=== PATIENT | male | born 1970 | race Caucasian/White ===

== ENCOUNTER → 2020-03-31 11:10 | Outpatient (BNVA) | payer OTHER, SELFPAY | PROVIDERS: Family Provider Internal Medicine; PCP Internal Medicine; Visit Provider Orthopaedic Surgery | DX: M76.51 Patellar tendinitis, right knee (principal) | CPT/HCPCS: 73560; 73565 ==

== ENCOUNTER 2020-08-06 10:41 | Outpatient (CLI) | payer BC, SELFPAY ==
--- NOTE | 2020-08-06 | US_ITS ---
WS: [id number] ULTRASOUND ABDOMEN LIMITED CLINICAL INFORMATION: ELEVATED TRANSAMINASE LEVEL COMPARISON: None. FINDINGS: Limited examination due to body habitus Liver Size: Enlarged Craniocaudal length: 20.1 cm. Echogenicity: Dense Surface nodularity: None. Mass (size and location): None. Bile ducts Intrahepatic ducts: Normal. Common bile duct diameter: 2.7 mm. Gallbladder Normal. Gallstones: None. Gallbladder sludge: None. Gallbladder wall thickening: None. Pericholecystic fluid: None. Sonographic Ortiz sign: Absent. Pancreas Not well visualized Right kidney: Normal. Hydronephrosis: None. Size: 13.3 cm x 6.0 cm x 5.3 cm. Abdominal aorta and IVC Visualized portions are normal. Ascites: None. US/US liver [id number] IMPRESSION: 1. Technically limited examination due to body habitus 2. Hepatomegaly with diffuse fatty infiltration. 3. Gallbladder appears normal 4. No hydronephrosis in right kidney.
== END 2020-08-06 10:42 | disposition home or self-care (01) ==
LOC: RADOUTREAD 11:06
PROVIDERS: PCP Internal Medicine; Visit Provider Internal Medicine
DX: R74.01 Elevation of levels of liver transaminase levels (principal); R16.0 Hepatomegaly, not elsewhere classified; K76.0 Fatty (change of) liver, not elsewhere classified
CPT/HCPCS: 76705